=== PATIENT | female | born 1995 | race Two or more races ===

== ENCOUNTER 2019-08-09 16:37 | Inpatient (IN) | payer OTHER ==
[~2019-08-09] VITALS: Ht 167.6 cm; Wt 95.3 kg
[2019-08-09] MEDS ORDERED: PRENATAL CAPLE1 EAC1 PO (16:41)
[2019-08-09] MEDS ORDERED: BENADRYL50 MG PO (16:41)
== END 2019-08-12 17:29 | disposition home or self-care (01) | DRG 833 ==
LOC: LDR 16:37 → OB/GYN 08-11 08:24
PROVIDERS: ADMIT Specialist
PROC: BY4FZZZ Ultrasonography of Third Trimester, Single Fetus (ICD-10-PCS; principal; 2019-08-09)
PROC: 4A1HXCZ Monitoring of Products of Conception, Cardiac Rate, External Approach (ICD-10-PCS; 2019-08-09)
DX: O47.03 False labor before 37 completed weeks of gestation, third trimester (principal); O26.893 Other specified pregnancy related conditions, third trimester; R21 Rash and other nonspecific skin eruption

== ENCOUNTER 2019-08-17 11:38 | Inpatient (IN) | payer OTHER ==
[~2019-08-17] VITALS: Ht 165.1 cm; Wt 98.0 kg
[~2019-08-17 11:38] MED LIST: BENADRYL50 MG PO; PRENATAL CAPLE1 EAC1 PO
[2019-09-17] MEDS ORDERED: FEOSOL325 MG PO (11:50)
== END 2019-09-17 13:38 | disposition home or self-care (01) | DRG 806 ==
LOC: EDBD 09-14 00:44 → LDR 09-14 00:44 → OB/GYN 09-14 00:44 → EDBD 09-17 12:00 → LDR 09-17 12:00 → OB/GYN 09-17 12:00
PROVIDERS: ADMIT Specialist
PROC: 10E0XZZ Delivery of Products of Conception, External Approach (ICD-10-PCS; principal; 2019-09-14)
PROC: 0HQ9XZZ Repair Perineum Skin, External Approach (ICD-10-PCS; 2019-09-14)
PROC: 3E033VJ Introduction of Other Hormone into Peripheral Vein, Percutaneous Approach (ICD-10-PCS; 2019-09-14)
PROC: 10907ZC Drainage of Amniotic Fluid, Therapeutic from Products of Conception, Via Natural or Artificial Opening (ICD-10-PCS; 2019-09-14)
PROC: 4A1HXCZ Monitoring of Products of Conception, Cardiac Rate, External Approach (ICD-10-PCS; 2019-09-14)
PROC: 30233N1 Transfusion of Nonautologous Red Blood Cells into Peripheral Vein, Percutaneous Approach (ICD-10-PCS; 2019-09-16)
DX: O70.0 First degree perineal laceration during delivery (principal); D62 Acute posthemorrhagic anemia; Z37.0 Single live birth; Z3A.39 39 weeks gestation of pregnancy

== ENCOUNTER 2019-09-13 19:57 | Outpatient (CLI) | payer OTHER | END 2019-09-14 16:13 | disposition still patient (30) | LOC: EDBD 19:57 → OBS/DEL 19:57 | DX: O47.1 False labor at or after 37 completed weeks of gestation (principal) ==

== ENCOUNTER 2022-11-20 17:36 | Outpatient (CLI) | payer OTHER ==
[~2022-11-20 17:36] MED LIST changes: +FEOSOL325 MG PO
== END 2022-11-20 17:51 | disposition home or self-care (01) ==
LOC: NST 17:36
PROVIDERS: ATTEND Specialist
DX: Z34.83 Encounter for supervision of other normal pregnancy, third trimester (principal)

== ENCOUNTER 2022-12-18 13:45 | Inpatient (IN) | payer OTHER ==
[~2022-12-18] VITALS: Ht 167.6 cm; Wt 96.2 kg
== END 2022-12-25 13:26 | disposition home or self-care (01) | DRG 807 ==
LOC: LDR 12-23 09:58 → OB/GYN 12-23 09:58
PROVIDERS: ADMIT Specialist; ATTEND Specialist
PROC: 10E0XZZ Delivery of Products of Conception, External Approach (ICD-10-PCS; principal; 2022-12-23)
PROC: 0HQ9XZZ Repair Perineum Skin, External Approach (ICD-10-PCS; 2022-12-23)
PROC: 4A1HXCZ Monitoring of Products of Conception, Cardiac Rate, External Approach (ICD-10-PCS; 2022-12-23)
DX: O70.0 First degree perineal laceration during delivery (principal); Z37.0 Single live birth; Z3A.39 39 weeks gestation of pregnancy; Z20.822 Contact with and (suspected) exposure to COVID-19; O70.1 Second degree perineal laceration during delivery; O90.81 Anemia of the puerperium